=== PATIENT | male | born 1980 | race Caucasian/White ===

== ENCOUNTER 2018-04-21 13:41 | Observation (INO) | payer OTHER ==
[~2018-04-21] VITALS: Ht 175.3 cm; Wt 73.9 kg
[2018-04-21 14:21] LABS: HEMATOCRIT 37.2 % (38.0-50.0); HEMOGLOBIN 13.2 G/DL (12.5-16.6); MCH 31.8 PG (29.0-34.0); MCHC 35.5 G/DL (30.0-36.0); MCV 89.6 FL (86-99); PLATELET COUNT 237 K/uL (156-360); RBC DIS.WIDTH-CV 12.5 % (11.8-14.6); RBC DIS.WIDTH-SD 41.6 % (39-53); RED BLOOD COUNT 4.15 M/uL (4.00-5.50)
[2018-04-21 14:30] LABS: ALBUMIN 4.6 g/dL (3.2-4.8); CHLORIDE 103 mEq/L (99-109); POTASSIUM 3.6 mEq/L (3.7-5.4); SODIUM 139 mEq/L (136-147)
[2018-04-21 14:32] LABS: GLUCOSE 154 mg/dL (70-99); TOTAL PROTEIN 6.8 g/dL (6.4-8.3)
[2018-04-21 14:34] LABS: TOTAL BILIRUBIN 0.5 mg/dL (0.0-1.0)
[2018-04-21 14:36] LABS: ALKALINE PHOSPHATASE 55 IU/L (3-129); CREATININE 0.8 mg/dL (0.6-1.3); GFR ESTIMATE (CALCULATED) > 59 mL/min/ (58.99-99999)
[2018-04-21 14:37] LABS: UREA NITROGEN (BUN) 10 mg/dL (9-23)
[2018-04-21 14:38] LABS: AST (GOT) 16 IU/L (2-34)
[2018-04-21 14:39] LABS: ALT (GPT) 22 IU/L (3-49); LIPASE 42 U/L (1.0-51.0)
[2018-04-21 16:24] LABS: APPEARANCE CLEAR ((CLEAR)); BILIRUBIN NEGATIVE; BLOOD NEGATIVE; COLOR STRAW ((YELLOW)); GLUCOSE (STRIP) 50; KETONES 20; LEUKOCYTES NEGATIVE; NITRITE NEGATIVE; PROTEIN (STRIP) 30; SPECIFIC GRAVITY 1.034 (1.000-1.030); UCUL ADDED? NO; UROBILINOGEN 0.2 MG/DL (0.2-1.0)
[2018-04-21] MEDS ORDERED: ZOFRAN4 MG PO (16:54)
[2018-04-21] MEDS ORDERED: PHENERGAN25 MG PR (16:55)
[2018-04-21] MEDS ORDERED: PROTONIX40 MG PO (16:56)
[2018-04-21] MEDS ORDERED: ZANTAC300 MG PO (16:56)
[2018-04-21 17:03] LABS: MAGNESIUM 1.8 mg/dL (1.3-2.7)
[2018-04-21 17:07] LABS: SERUM ETHYL ALCOHOL < 10 mg/dL
[2018-04-21 19:04] LABS: AMPHETAMINE NEGATIVE (500 ng/mL); BARBITURATES NEGATIVE (200 ng/mL); BENZODIAZEPINES NEGATIVE (150 ng/mL); BUPRENORPHINE NEGATIVE (10 ng/mL); COCAINE NEGATIVE (150 ng/mL); METHADONE NEGATIVE (200 ng/mL); METHAMPHETAMINE NEGATIVE (500 ng/mL); OPIATES (MORPHINE) NEGATIVE (100 ng/mL); OXYCODONE NEGATIVE (100 ng/mL); PHENCYCLIDINE NEGATIVE (25 ng/mL); PROPOXYPHENE NEGATIVE (300 ng/mL); THC CANNABINOIDS PRESUMPTIVE POSITIVE (50 ng/mL); TRICYCLIC ANTIDEPRESSANTS NEGATIVE (300 ng/mL)
[2018-04-21 19:45] VITALS: BP 147/77
[2018-04-22 00:10] VITALS: BP 142/71
[2018-04-22 01:27] LABS: HEMATOCRIT 34.9 % (38.0-50.0); HEMOGLOBIN 12.6 G/DL (12.5-16.6)
[2018-04-22 04:02] VITALS: BP 103/50
[2018-04-22 05:27] LABS: HEMATOCRIT 35.8 % (38.0-50.0); HEMOGLOBIN 12.1 G/DL (12.5-16.6); MCH 30.5 PG (29.0-34.0); MCHC 33.8 G/DL (30.0-36.0); MCV 90.2 FL (86-99); PLATELET COUNT 238 K/uL (156-360); RBC DIS.WIDTH-CV 12.7 % (11.8-14.6); RBC DIS.WIDTH-SD 41.9 % (39-53); RED BLOOD COUNT 3.97 M/uL (4.00-5.50); WHITE BLOOD COUNT 11.2 K/uL (4.1-10.2)
[2018-04-22 06:38] LABS: CHLORIDE 102 MEQ/L (99-109); CREATININE 0.7 MG/DL (0.6-1.3); GFR ESTIMATE (CALCULATED) > 59 mL/min/ (58.99-99999); GLUCOSE 129 mg/dL (70-99); POTASSIUM 3.8 MEQ/L (3.7-5.4); SODIUM 139 MEQ/L (136-147); UREA NITROGEN (BUN) 8 mg/dL (9-23)
[2018-04-22 07:25] VITALS: BP 126/71
[2018-04-22] MEDS ORDERED: SUCRALFATE1 GM PO (08:32)
[2018-04-22] MEDS ORDERED: PROTONIX40 MG PO (08:32)
[2018-04-22] MEDS ORDERED: CIPRO500 MG PO (08:33)
[2018-04-22] MEDS ORDERED: FLAGYL500 MG PO (08:33)
[2018-04-22] MEDS ORDERED: FLORASTOR250 MG PO (08:33)
[2018-04-22 11:37] VITALS: BP 112/72
[2018-04-22 12:37] LABS: HEMATOCRIT 38.2 % (38.0-50.0); HEMOGLOBIN 12.9 G/DL (12.5-16.6); MCV 90.5 FL (86-99)
[2018-04-22] MEDS ORDERED: ATIVAN0.5 MG PO (13:09)
== END 2018-04-22 13:26 | disposition home or self-care (01) ==
LOC: EME 13:41 → EDOF 16:20 → 4SOUTH 16:20 → ENRESERV 17:12 → 4SOUTH 19:34
PROVIDERS: Emergency Medicine; Internal Medicine
DX: K52.9 Noninfective gastroenteritis and colitis, unspecified (principal); K44.9 Diaphragmatic hernia without obstruction or gangrene; K92.0 Hematemesis; E87.6 Hypokalemia; F41.9 Anxiety disorder, unspecified; F12.90 Cannabis use, unspecified, uncomplicated; F17.210 Nicotine dependence, cigarettes, uncomplicated; F10.21 Alcohol dependence, in remission; Z87.19 Personal history of other diseases of the digestive system
CPT/HCPCS: 74177; 80048; 80053; 80306 90; 81003; 83690; 83735; 84999; 85014; 85018; 85027; 85610; 85730; 99281; 99285; C9113; G0378; G0480; J1630; J2405; J3411; J7030